=== PATIENT | male | born 1985 | race Caucasian/White ===

== ENCOUNTER 2021-04-09 06:49 | Inpatient (IN) | payer BC ==
[~2021-04-09] VITALS: Ht 180.3 cm; Wt 98.4 kg
[2021-04-09] VITALS (37 sets, daily range): BP systolic 84–138; BP diastolic 50–94
[2021-04-09 13:41] LABS: BE(vivo) -2.1 mmol/L (-2 to +3); HCO3 23.1 mmol/L (22.0-26.0); PCO2 41.2 mmHg (35.0-45.0); PO2 100.9 mmHg (80.0-100.0); pH 7.366 (7.360-7.450); sO2 97.4 % (92.0-98.0)
[2021-04-09 15:56] LABS: CREATININE 0.7 mg/dL (0.7-1.3); POTASSIUM 3.4 mmol/L (3.5-5.1)
[2021-04-09 15:58] LABS: URINE BLOOD 1+ (Negative); URINE CLARITY CLOUDY; URINE COLOR YELLOW; URINE GLUCOSE-RANDOM* NEGATIVE (Negative); URINE KETONES 1+ (Negative); URINE LEUKOCYTES 3+ (Negative); URINE NITRITE POSITIVE (Negative); URINE PROTEIN (DIPSTICK) NEGATIVE (Negative); URINE SPECIFIC GRAVITY 1.025 (1.005-1.035)
[2021-04-09 16:02] LABS: ALBUMIN 4.1 g/dL (3.4-5.0); TOTAL BILIRUBIN 1.2 mg/dL (0.2-1.0); TOTAL PROTEIN 6.7 g/dL (6.4-8.2)
[2021-04-09 16:10] LABS: ICTOTEST (BILI CONFIRMATORY) Negative (Negative); URINE BILIRUBIN NEGATIVE (Negative)
[2021-04-09 16:15] LABS: SQUAMOUS 0-3 Few /LPF (0-3)
[2021-04-09 16:16] LABS: URINE RBC 3-10 Few /HPF (NONE SEEN); URINE WBC >25 Many /HPF (NONE SEEN)
[2021-04-09 16:19] LABS: AMORPHOUS URATES Many /LPF (None Seen)
[2021-04-09 16:20] LABS: URIC ACID CRYSTALS 0-3 Few /LPF (None Seen)
--- NOTE | 2021-04-09 16:42 | NUR ---
PT ARRIVED IN ICU AT APPROX 1300. PT WAS INTUBAED AND SEDATED UPON ARRIVAL. PT WAS MEDICATED WITH PROPOFOL AND FENTYNAL. PRECIADO IN PLACE. PIV X2. PT WAS RESTRAINED BY EMS FOR TRANSPORT. I GOT A NEW ORDER FROM THE PROVIDER AND SWITCHED TO OUR RESTRAINTS. PRECEDEX GTT INIATED. PT AFEBRILE, ADEQUATE UOP, NO BM, NPO. PT AND PARENTS HAVE BEEN THOUROUGHLY UPDATED AND EDUCATED ON PT CONDITION AND POC. PT SLOWLY PROGRESSING TOWARDS POC.
[2021-04-09 19:28] LABS: HEMATOCRIT 38.9 % (42.0-52.0); HEMOGLOBIN 13.3 gm/dL (14.0-18.0); MCH 35.2 pg (26.0-34.0); MCHC 34.1 g/dL (28.0-37.0); MCV 103.3 fL (80.0-100.0); RBC 3.76 mil/uL (4.50-6.00); RDW 12.7 % (10.5-14.5); WBC 5.7 thou/uL (4.0-11.0)
[2021-04-09 19:42] LABS: INR 1.09; PROTIME 11.8 Seconds (10.5-12.1)
[2021-04-09 19:53] LABS: CALCIUM 8.3 mg/dL (8.5-10.1); CREATININE 0.7 mg/dL (0.7-1.3); MAGNESIUM 2.2 mg/dL (1.8-2.4); POTASSIUM 3.4 mmol/L (3.5-5.1)
[2021-04-10] VITALS (46 sets, daily range): BP systolic 88–151; BP diastolic 49–93
[2021-04-10 04:02] LABS: HEMATOCRIT 34.6 % (42.0-52.0); HEMOGLOBIN 12.1 gm/dL (14.0-18.0); MCH 36.6 pg (26.0-34.0); MCHC 34.9 g/dL (28.0-37.0); MCV 104.7 fL (80.0-100.0); RBC 3.3 mil/uL (4.50-6.00); RDW 12.4 % (10.5-14.5); WBC 5.4 thou/uL (4.0-11.0)
[2021-04-10 04:12] LABS: CALCIUM 8.2 mg/dL (8.5-10.1); CREATININE 0.7 mg/dL (0.7-1.3); POTASSIUM 3.8 mmol/L (3.5-5.1)
--- NOTE | 2021-04-10 06:25 | NUR ---
No changes in pt status overnight. Pt kept at RAAS of -3, lower levels of sedation pt will sit up and pull at restraints, lester; moves all extremities and opens eyes but does not follow commands. Urine output 700 cc for this shift. Initially urine clear louise but noted at 0600 that it had become more concentrated, cloudy, with sediment. Lungs remain clear, O2 sat 98-100% on FiO2 25%. Soft wrist restraints remain in place bilaterally.
--- NOTE | 2021-04-10 08:58 | NUR ---
ASSUMED CARE OF PT AT 0700 DR. BALL AT BEDSIDE AT 0830, NEW ORDERS GIVEN FOR LORAZAPAM AND A PICC LINE PLACEMENT. PT IS RESTLESS AND TRYING TO SIT UP AND PULL AT LINES
--- NOTE | 2021-04-10 11:10 | NUR ---
VAT CONSULTED FOR PICC PLACEMENT. PT'S LABS,MEDS,HX,ORDER AND CONSENT VERIFIED. JARRELL AMAYA WAS WIDELY PATENT WITH USG. 5FR TL POWER PICC TRIMMED TO 40CM INSERTED TO 0CM X1 STICK. PT TOLERATED WELL. STAT CXR ORDERED, UNABLE TO CONFIRM WITH 3CG
[2021-04-10 12:06] LABS: ALBUMIN 3.4 g/dL (3.4-5.0); DIRECT BILIRUBIN 0.3 mg/dL (<0.1-0.2); TOTAL BILIRUBIN 0.9 mg/dL (0.2-1.0); TOTAL PROTEIN 6.1 g/dL (6.4-8.2)
--- NOTE | 2021-04-10 12:31 | NUR ---
CXR CONFIRMED PICC AT [facility]. RELEASED FOR IMMEDIATE USE PER PROTOCOL
[2021-04-11] VITALS (33 sets, daily range): BP systolic 96–139; BP diastolic 60–95
--- NOTE | 2021-04-11 | NUR ---
PTS FATHER CALLED AND SAID HE FOUND 2 MONTHS QUANITY OF PRILOSEC IN HIS APT PT WAS S/C TO HAVE AN MRI THIS WED DUE TO ABD PAIN POSSIBLE PANCRETITIS HE STATES PT WAS TO GO TO [facility] IN [facility] BUT WAS THEN TX HERE DUE TO NO ICU BEDS AT [facility] IN [facility].
[2021-04-11 05:28] LABS: ALBUMIN 3.2 g/dL (3.4-5.0); CALCIUM 8.1 mg/dL (8.5-10.1); CREATININE 0.7 mg/dL (0.7-1.3); POTASSIUM 3.5 mmol/L (3.5-5.1); TOTAL BILIRUBIN 0.6 mg/dL (0.2-1.0); TOTAL PROTEIN 6.1 g/dL (6.4-8.2)
[2021-04-11 05:51] LABS: HEMOGLOBIN 12.7 gm/dL (14.0-18.0); MCH 35.8 pg (26.0-34.0); MCHC 34.5 g/dL (28.0-37.0); MCV 103.7 fL (80.0-100.0); RBC 3.56 mil/uL (4.50-6.00); RDW 12.4 % (10.5-14.5); WBC 5.5 thou/uL (4.0-11.0)
--- NOTE | 2021-04-11 06:00 | NUR ---
REMAINS INTUBATED AND SEDATED WITH PROPOFOL 50 MCG AND ATIVAN AT 6 MG VERSED GTT TITRATED OFF EARLIER. PT BECOMES VERY AGITATED AND RESTLESS IF SEDATION IS LIGHTENED. 1000 CC UO THIS SHIFT. PROGRESSING TOWARD GOALS
--- NOTE | 2021-04-11 07:26 | NUR ---
ORDERS FOR EVAL AND TREAT. Pt IS INTUBATED AND SEDATED. WILL PLACE ON HOLD AND AWAIT NEW ORDERS WHEN Pt CAN PARTICIPATE
--- NOTE | 2021-04-11 11:37 | NUR ---
Spoke with pt dad on phone - dad stated pt was scheduled for abdominal US and brain MRI this week. He has since cancelled those appointments but wanted to let the care team here know. RN informed dad of pt general condition and encouraged to call back with any questions or concerns.
--- NOTE | 2021-04-11 16:05 | NUR ---
35-year-old male patient who presented by air ambulance from [facility] in [facility]. The patient presented there with acute alcohol withdrawal symptoms. Patient remains in ICU on a ventilator at this time. Father Trace is listed as next of kin at [phone]. Spoke with father Trace who added the patients mother Pat [phone] to the call. Both discussed their concerns over his drinking for many years. That and a long standing history of depression and anxiety. 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 The patient lives alone in his own home. The family had reached out to [facility] last week looking for a bed for the patient for his ongoing addition along with depression and anxiety. Discussed the role of CM and that CM has been in touch with [facility] at [phone] via Ev Reynolds. Ev has agreed to come see patient once more medically stable. Answered parents questions and gave number to call for an CM concerns. Informed that CM will be in touch once patient becomes more medically stable and plans for discharge begin. CM will continue to follow for discharge needs.
--- NOTE | 2021-04-11 22:00 | NUR ---
SPOKE WITH PTS FATHER. GIVEN A COND REPORT. HE STATES HIS SON IS A WONDERFUL KIND PERSON. HE JUST HAS THIS ALCOHOL ADDICTION. 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 HE WAS CONCERNED HIS PCP WANTED AN MRI AND MRA OF THE BRAIN AND US OF ABOUMEN THIS WEEK. HE IS JUST ANXIOUS TO GET HIS SON INTO A GOOD REHAb CENTER.
[2021-04-12] VITALS (24 sets, daily range): BP systolic 98–141; BP diastolic 61–99
[2021-04-12 05:04] LABS: BE(vivo) -2.2 mmol/L (-2 to +3); HCO3 21.9 mmol/L (22.0-26.0); PCO2 35.3 mmHg (35.0-45.0); PO2 121.5 mmHg (80.0-100.0); sO2 98.4 % (92.0-98.0)
[2021-04-12 05:44] LABS: BASOPHILS 0.5 % (0.0-2.0); EOSINOPHILS 5.4 % (0.0-3.0); HEMATOCRIT 35.8 % (42.0-52.0); HEMOGLOBIN 12.4 gm/dL (14.0-18.0); LYMPHOCYTES 21.8 % (24.0-44.0); MCH 35.6 pg (26.0-34.0); MCHC 34.6 g/dL (28.0-37.0); MCV 102.9 fL (80.0-100.0); MONOCYTES 12.7 % (1.0-8.0); PLATELET COUNT 129 thou/uL (150-400); POLYS 59.6 % (36.0-66.0); RBC 3.48 mil/uL (4.50-6.00); RDW 12.3 % (10.5-14.5); WBC 5.1 thou/uL (4.0-11.0)
--- NOTE | 2021-04-12 06:00 | NUR ---
REMAINS INTUBATED AND SEDATED WITH PRECEDEX 0.8 AND PROPOFOL 40 MCG RESTRAINED. PT IS VERY STRONG AND WILL ATTEMPT TO PULL AT ET TUBE. 800 CC UO THIS SHIFT. SINUS RHYTHM. PROGRESSING TOWARD GOALS. WILL CONT TO MONITOR.
[2021-04-12 06:16] LABS: ALBUMIN 2.9 g/dL (3.4-5.0); CALCIUM 8.2 mg/dL (8.5-10.1); CREATININE 0.6 mg/dL (0.7-1.3); POTASSIUM 3.3 mmol/L (3.5-5.1); TOTAL BILIRUBIN 0.7 mg/dL (0.2-1.0)
--- NOTE | 2021-04-12 09:00 | NUR ---
REPORTED TO DR. SCANLON IN ROUNDS THAT PT PCP AT THE OTHER HOSPITAL WAS ASKING FOR A CT ABD AND MRI MRA OF THE BRAIN. NO NEW ORDERS.
--- NOTE | 2021-04-12 10:57 | NUR ---
PT SAT UP IN BED AND REACHED FOR ETT DESPITE SEDATION. HOWEVER FOLLOWING ALL COMMANDS AT THIS TIME AND CALM. DIPRIVAN PLACED ON HOLD. CPAP TRIAL STARTED.
--- NOTE | 2021-04-12 11:39 | NUR ---
Reviewed case in 04-12-21 LOS and plan for continued ICU care. No changes to ICU level of care and remains intubated. CM will continue to follow.
--- NOTE | 2021-04-12 19:38 | NUR ---
PT REMAINS SEDATED ON VENT, BRIEF CPAP TRIAL TODAY. TOLORATING TUBE FEEDING.
--- NOTE | 2021-04-12 20:24 | NUR ---
PT'S FATHER CALLED; UPDATED UPON HIS REQUESTED.
[2021-04-13] VITALS (27 sets, daily range): BP systolic 79–144; BP diastolic 48–89
[2021-04-13 04:33] LABS: CALCIUM 8.8 mg/dL (8.5-10.1); CREATININE 0.5 mg/dL (0.7-1.3); MAGNESIUM 2.1 mg/dL (1.8-2.4); POTASSIUM 3.8 mmol/L (3.5-5.1)
[2021-04-13 04:35] LABS: HEMATOCRIT 36.8 % (42.0-52.0); HEMOGLOBIN 12.8 gm/dL (14.0-18.0); MCH 35.8 pg (26.0-34.0); MCHC 34.7 g/dL (28.0-37.0); RBC 3.57 mil/uL (4.50-6.00); RDW 12.7 % (10.5-14.5); WBC 5.2 thou/uL (4.0-11.0)
--- NOTE | 2021-04-13 06:20 | NUR ---
No event in this shift. Pt remains on vent and heavily sedated. Not tolerating to come down on sedative due to on going ETOH withdrawal. High risk of self extubation noted. Gave ativan IV prn as chart per EMAR. Slowl progressing toward goals.
--- NOTE | 2021-04-13 20:43 | NUR ---
END OF SHIFT NOTE. PT NOT PROGRESSING TOWARDS GOALS BUT GOALS REMAIN THE SAME. VERY RESTLESS EVEN ON SEDATION, NOT FOLLOWING COMMANDS TODAY. LASIX X 1 WITH GOOD DIURESIS. TOLORATING TUBE FEEDING.
[2021-04-14] VITALS (28 sets, daily range): BP systolic 81–138; BP diastolic 40–90
[2021-04-14 04:44] LABS: BE(vivo) 1.8 mmol/L (-2 to +3); HCO3 27.1 mmol/L (22.0-26.0); PCO2 44.9 mmHg (35.0-45.0); PO2 89.1 mmHg (80.0-100.0); pH 7.398 (7.360-7.450); sO2 96.7 % (92.0-98.0)
[2021-04-14 05:17] LABS: ALBUMIN 3.1 g/dL (3.4-5.0); CALCIUM 8.9 mg/dL (8.5-10.1); CREATININE 0.8 mg/dL (0.7-1.3); POTASSIUM 3.8 mmol/L (3.5-5.1); TOTAL BILIRUBIN 0.5 mg/dL (0.2-1.0); TOTAL PROTEIN 6.6 g/dL (6.4-8.2)
[2021-04-14 05:25] LABS: ABSOLUTE NEUTROPHILS 3.2 thou/uL (1.4-8.2); BASOPHILS 0.5 % (0.0-2.0); HEMATOCRIT 37.2 % (42.0-52.0); HEMOGLOBIN 13.1 gm/dL (14.0-18.0); LYMPHOCYTES 21.7 % (24.0-44.0); MCH 35.9 pg (26.0-34.0); MCHC 35.1 g/dL (28.0-37.0); MCV 102.1 fL (80.0-100.0); MONOCYTES 18.4 % (1.0-8.0); PLATELET COUNT 204 thou/uL (150-400); POLYS 53.4 % (36.0-66.0); RBC 3.64 mil/uL (4.50-6.00); RDW 12.4 % (10.5-14.5); WBC 5.9 thou/uL (4.0-11.0)
--- NOTE | 2021-04-14 06:19 | NUR ---
Pt is continue to be on vent. No event tonight. Still on high dose of propofol and precedex gtt for sedation. He is able to follow some commands when decreased some propofol gtt. He tried to get out off bed when he awakes. High risk of self extubation noted. Continue to be on restraint w/o any complication. He is well tolerated TF. Murdock is patent with great urine output. VSS. Afebrile in this shift. He is slowly progressing toward goals.
--- NOTE | 2021-04-14 09:45 | NUR ---
pt's father called in am. updated on plan of care, medications for alcohol withdraw, wrist restraints for safety. questions answered to satisfaction.
--- NOTE | 2021-04-14 11:35 | NUR ---
self extubation. rn just observered pt sleeping with kenna wrist restraints intact. self extubated, breathing on own with resp even and unlabored. pt able to cough, suctioned thick clear and bloody tinged secretions. sa02 eventually down to 85%, bagged with 100% 02, then placed on 100% nonrebreather. Marlen RT immediately notified, then Dr. Jiménez notified. placed on 3L/nc by RT.
[2021-04-14 12:07] LABS: BE(vivo) 1.9 mmol/L (-2 to +3); HCO3 27.2 mmol/L (22.0-26.0); PCO2 44.9 mmHg (35.0-45.0); PO2 85.8 mmHg (80.0-100.0); sO2 96.5 % (92.0-98.0)
--- NOTE | 2021-04-14 13:25 | NUR ---
pulling at restraints, trying to get out of bed, sitting up in bed, wobbly and leaning over bedrail looking down toward restraint securing site to release restraint. assisted back into bed again. scooted way down in bed with one leg hanging out of bed. media monitor patches replaced, pt removed them within minutes. repositioned for comfort with 2 assist with kenna wrist restraints remaining secure for pt safety. follows commands all extremities, impulsive.
[2021-04-15] VITALS (25 sets, daily range): BP systolic 86–124; BP diastolic 49–78
--- NOTE | 2021-04-15 16:00 | NUR ---
DR. RM HERE. STATES TO JUST LEAVE PRECEDEX ON FOR NOW.
--- NOTE | 2021-04-15 18:16 | NUR ---
End of shift note. Pt remains somewhat sedate on Precedex. Attempted to get OOB x 1 but bed alarm was on. Pt confused to place and sometimes situation. He knows it is March but not the date. Hallucinating at times.
[2021-04-16] VITALS (30 sets, daily range): BP systolic 77–137; BP diastolic 45–90
[2021-04-16 09:17] LABS: ABSOLUTE NEUTROPHILS 3.3 thou/uL (1.4-8.2); BASOPHILS 0.3 % (0.0-2.0); EOSINOPHILS 4.8 % (0.0-3.0); HEMATOCRIT 39.4 % (42.0-52.0); HEMOGLOBIN 13.7 gm/dL (14.0-18.0); LYMPHOCYTES 21.9 % (24.0-44.0); MCH 35.3 pg (26.0-34.0); MCHC 34.9 g/dL (28.0-37.0); MCV 101.1 fL (80.0-100.0); MONOCYTES 15.3 % (1.0-8.0); PLATELET COUNT 276 thou/uL (150-400); POLYS 57.7 % (36.0-66.0); RDW 12.1 % (10.5-14.5); WBC 5.7 thou/uL (4.0-11.0)
[2021-04-16 09:46] LABS: ALBUMIN 3.4 g/dL (3.4-5.0); CALCIUM 9.4 mg/dL (8.5-10.1); CREATININE 0.8 mg/dL (0.7-1.3); MAGNESIUM 2.2 mg/dL (1.8-2.4); POTASSIUM 4.2 mmol/L (3.5-5.1); TOTAL BILIRUBIN 0.7 mg/dL (0.2-1.0); TOTAL PROTEIN 7.4 g/dL (6.4-8.2)
--- NOTE | 2021-04-16 11:54 | NUR ---
oriented to person, place, incorrect date. ciwa-3. precedex continuing. requesting to brush teeth and bathing self now.
--- NOTE | 2021-04-16 15:02 | NUR ---
alert, oriented. Dr. Acosta present. pt feels slightly agitated. librium ordered, administered. lester dc'd, well tolerated. up to toilet.
[2021-04-16 19:30] LABS: FOLIC ACID 9.9 ng/mL (8.6-58.9)
--- NOTE | 2021-04-16 22:58 | NUR ---
PT ALERT AND ORIENTED X4. VSS AFEBRILE. SATS 99% ON RA PRESENTLY. LUNGS CLEAR SLIGHTLY DIMINISHED AT BASES. FINGERTIPS AND EXTREMITIES REMAIN SLIGHTLY MOTTLED, PT IS ABLE TO TURN SELF IN BED. DENIED PAIN. NPO AFTER MN FOR ABDOMINAL US. CIWA 0 . PT IS CALM AND QUIET. NO S/S SZ ACTIVITY NOTED. BED DOWN CALL LIGHT IN REACH. BED ALARM IS ON.
[2021-04-17] VITALS (24 sets, daily range): BP systolic 103–141; BP diastolic 60–93
--- NOTE | 2021-04-17 04:11 | NUR ---
PT PROGRESSING TOWARDS D/C GOALS. VSS AFEBRILE. SATS WNL. SR -ST ON MONITOR. PT HAS BEEN NPO SINCE MS FOR ABDOMINAL US. ENCOURAGED PT TO TRY TO URINATE. HE STATED HE REALLY HASNT HAD ANYTHING TO EAT OR DRINK TONIGHT AND DOES NOT FEEL THE URGE TO VOID PRESENTLY.
[2021-04-17 05:02] LABS: ALBUMIN 3.5 g/dL (3.4-5.0); DIRECT BILIRUBIN 0.2 mg/dL (<0.1-0.2); TOTAL BILIRUBIN 0.6 mg/dL (0.2-1.0); TOTAL PROTEIN 7.3 g/dL (6.4-8.2)
--- NOTE | 2021-04-17 07:30 | NUR ---
PT DID VOID 400 THIS AM CLEAR YELLOW URINE. NO S/S DISTRESS. NO C/O PAIN.
--- NOTE | 2021-04-17 09:50 | NUR ---
WHEN RN ENTERED THE ROOM, PT WAS READING A BOOK, MUCH DIFFERENT AFFECT THAN DAYS PRIOR WHEN RN HAD ORIGINALLY SEEN THE PT. PT IS AOX4 CALM/COLLECTED. RN SPOKE BREIFLY ABOUT POST HOSPITALIZATIO SELF SUFFICIENCY CARE AND TO ADDRESS THE REASONS FOR ALCOHOLISM, PER PT, STATED THAT HE WAS DEPRESSED, PREDISPOSED FOR ALCOHOLISM R/T FAMILY AND WORKING FROM HOME EXACERBATED THIS. PT WAS SEEN EATING PUREED DIET FOOD, TOLERATED VERY WELL. SEROQUEL WAS NOT GIVEN THIS AM, PER PT, DID NOT TAKE SEROQUEL PRIOR TO HOSPITALIZATION. PT STATED THAT HE HAD SPOKEN WITH A STAFF REGARDING GETTING ON A MONTH LONG TREATMENT PROGRAM TO HELP WITH CURRENT CONDITION AND TO QUIT ALCOHOL. 80% OF MORNING MEAL EATEN. TRANSFER ORDERS IN, RN TO REPORT SOON
--- NOTE | 2021-04-17 14:39 | EKG ---
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 : 1985 Requested By: Delia Acosta Order Number: [id number] MD: Shawn Flowers Measurements Intervals [place] Rate: 93 P: 48 NM: 157 QRS: 61 QRSD: 96 T: -20 QT: 374 QTc: 466 Interpretive Statements Sinus rhythm Borderline T abnormalities, diffuse leads Baseline wander in lead(s) I,V1 No previous ECG available for comparison Electronically Signed On 04-17-2021 14:39:02 CDT by Shawn Flowers [email or web address] <ELECTRONICALLY SIGNED> By: Shawn Flowers MD, [facility] 04/17/21 1439 27 27 Shawn Flowers MD, [facility] /EPI
--- NOTE | 2021-04-17 18:33 | NUR ---
PATIENT TRANSFER FROM ICU AT 1030. A/0 X4. CIW X0. WALKED IN HALLWAY GAIT STEADY. WILL NPO AFTER MIDNIGHT. SLOWLY TOWARDS POC GOALS.
--- NOTE | 2021-04-18 04:23 | NUR ---
Patient making slow progress towards outcpme goals. Oxygenation optimal on room air. Discussed with Ester conte NP low grade temperature, orders recived for Tylenol. Now afebrile. NPO after MN for possible gall bladder removal. CIWA currently 0, high fall risks, fall precautions in place. BP and rhythm stable.
[2021-04-18 05:25] VITALS: BP 112/75
[2021-04-18 07:54] VITALS: BP 121/80
--- NOTE | 2021-04-18 09:31 | NUR ---
Now that patient is out of ICU reached out to Ev Reynolds at [facility] at [phone] and gave room number of patient as well as the office number of SW. Ev will reach out to JAYSON and come see the patient on-site for a referral for possible discharge needs. Notified SW of above.
--- NOTE | 2021-04-18 09:55 | NUR ---
Spoke with both Father Papi and Mother Beatriz of patient at [phone] and discussed plan of care medically. Parents have faxed to [facility] papers for signature. Plan Noel diamond at noon. Also informed of [facility] consult. Father mentioned the patient has not been seen by psychiatry and notified psychiatrist of current status including room number and planned surgery for today along with need for consult as ordered previously. Will also ask that PT and OT resume and see patient post op and will await psych consult along with [facility] consult.
[2021-04-18 15:07] VITALS: BP 110/68
--- NOTE | 2021-04-18 15:13 | NUR ---
JAYSON reviewed chart and spoke with nursing and attending physician. Pt was transferred to from ICU. Pt is currently off the unit having surgery-lap eliz. PT/OT to evaluate pt following surgery. Psych consulted to evaluate pt. [facility] has been contacted to assist with treatment options. JAYSON received call from Ev with [employer] requesting update and info regarding pt's history. Info provided. Ev to follow up with pt to discuss treatment options. JAYSON received several calls from pt's father, Trace, regarding discharge plan and assistance with FMLA ppwk. FMLA ppwk received and provided to hospitalist for completion. JAYSON explained need for medical clearance for discharge and assessment by [facility] for treatment plan. JAYSON is following to assist as needed with discharge planning.
[2021-04-18 17:42] VITALS: BP 110/68; BP 120/78
[2021-04-18 17:43] VITALS: BP 123/85; BP 126/84
[2021-04-18 19:25] VITALS: BP 117/72
[2021-04-19] VITALS (7 sets, daily range): BP systolic 108–127; BP diastolic 72–77
--- NOTE | 2021-04-19 05:16 | NUR ---
PT MAKING PROGRESS TOWARDS GOALS. INSTRUCTED TO SPLINT HIS ABDOMEN WITH ANY COUGHING, LAUGHING AND EVEN WALKING TO HELP DECREASE PAIN. RATING PAIN 1-2/10 OVERNIGHT.
[2021-04-19] MEDS ORDERED: ACETAMINOPHEN325 M1 PO (10:22)
--- NOTE | 2021-04-19 15:18 | NUR ---
JAYSON reviewed chart and spoke with nursing and attending physician. Pt is POD#1 lap eliz. Pt started on a diet and is medically stable for discharge. JAYSON met with pt at bedside. Introduced role of JAYSON. Pt is alert/orientated x 4. JAYSON discussed recommendation for inpatient ETOH treatment, which has been discussed with his parents. Pt is aware and in agreement with plan. Pt has not yet spoken with [facility]. SW informed pt that he will be going out of state for treatment. Pt verbalized understanding. FMLA ppwk completed by attending physician. JAYSON spoke with Ev with [facility], who states that pt has been accepted to their facilities in [place], [place] or [place], [place]. JAYSON faxed additional clinical info and discharge ppwk to [facility]. Received confirmation. Air flight and escort services are not covered by pt's insurance. JAYSON spoke with pt's father, Trace, via phone to provide update and discuss transportation arrangements. Pt's family would prefer the [place] location. Pt's father states they would like for pt to be transported with escort service by air flight. Pt's parents will be bringing personal belongings to [facility] this afternoon. JAYSON updated Ev at [facility], who states she will work on making flight arrangements for tomorrow morning. JAYSON met with pt at bedside to provide update. Pt is agreeable with plan. FMLA ppwk left in pt's room for pt's father to pickle cutter. JAYSON placed call to pt's father's cell phone. No voice mailbox available. JAYSON spoke with pt's mother via phone to provide update. Pt's father is en route to [facility] and will be her later this afternoon. Awaiting call from Ev with confirmation of travel plans. JAYSON updated nursing and attending physician. JAYSON is following to assist as needed with discharge planning.
[2021-04-20 03:39] VITALS: BP 102/60
--- NOTE | 2021-04-20 03:50 | NUR ---
pt asked question about self care of incision sites and if their are other restrictions since his lap-eliz. educated pt about diet restrictions and cleaning incision sites. he is aware of plan for discharge and he seems to be unenthusiastic about the etoh rehab, learning curve. encouraged patient to think about the fact that rehab ( like most things) you only get out what is put in. patient acknowledged this reality
[2021-04-20 07:16] VITALS: BP 115/74
--- NOTE | 2021-04-20 11:35 | NUR ---
JAYSON reviewed chart and spoke with nursing and attending physician. Pt is medically stable for discharge today. JAYSON received call from Ev with [facility], who states that she met with pt this morning. Pt will be going to their treatment facility in [place], [place] ([facility]: [address] [place] [id number]). Per Ev, this facility will better meet pt's needs. Ev states that transportation will be arranged for tomorrow (Air flight and escort services). Ev is unable to get all arranged for today. JAYSON met with pt at bedside to provide update. Pt is aware and in agreement with discharge plan. Pt's personal belongings at bedside. JAYSON updated pt's nurse and attending physician. Awaiting confirmation of transportation arrangements. JAYSON is following to assist as needed with discharge planning.
[2021-04-20 16:04] VITALS: BP 107/68
[2021-04-20 19:11] VITALS: BP 124/77
[2021-04-20 20:28] VITALS: BP 111/72
--- NOTE | 2021-04-20 22:07 | NUR ---
PT RESTING IN BED. ABD DISTENDED BS DECREASED, PT PASSING GAS. STERI STRIPS INTACT. PT DECLINED HS SNACK. PT VERBALIZED PLAN FOR DC IN AM 0930. PT TRANSFERRING TO [facility] PER [employer] RE[facility]. PT VERBALIZED UNDERSTANDING. PT HAD ALL OF HIS ITEMS TRANSFERRED WITH HIM. REPORT CALLED. NURSE AWARE OF PLANNED CD 0930 WITH ESCORT TO AIRPORT AND TO [facility].
--- NOTE | 2021-04-21 03:35 | NUR ---
PT TRANSFERRED TO UNIT AT APPROXIMATELY 2200. PT I A/O X4 AND IS UP AD FIDEL. VSS AFEBRILE. LAP SITES C/D/I. DENIES C/O PAIN OR DISCOMFORT. CALL LIGHT IS WITHIN REACH. WILL CONTINUE TO MONITOR.
[2021-04-21 07:42] VITALS: BP 112/75
--- NOTE | 2021-04-21 07:43 | NUR ---
ASSUMED CARE OF PT AT 0700 THIS MORNING. PT IS A/OX4 AND HAS NO COMPLAINTS. PT IS TO BE DISCHARGED THIS MORNING AT 0930 WITH ESCORT TO GO TO THE AIRPORT AND TO A REHAB FACILITY. SKIN IS INTACT WITH X4 LAP SITES WITH DERMABOND AND TAPE. ASSESSMENTS DOCUMENTED IN CHART AND OTHERWISE UNREMARKABLE. JARRELL [id number] PICC IS IN PLACE. CALL LIGHT AND OTHER NEEDS ARE WITHIN REACH. MEDS AND TX GIVEN NEEDED AND SCHEDULED. PT SIGNED DISCHARGE PAPERWORK AND INSTRUCTONS ARE LEFT WITH PT. WILL CONTINUE TO OBSERVE UNTIL LEAVING UNIT.
--- NOTE | 2021-04-21 10:08 | PATH ---
[facility] [address] [place] [address] PATHOLOGY RPT PROCEDURE Name: EWELINA FONSECA Room #: 433-I ADM IN M.R.#: [id number] Admission: 04/09/21 Date of : 85 Discharge: Report #: [id number] Path Case #: [id number] LCA Accession Number: [id number] . 01 Material submitted: . gallbladder - GALLBLADDER . 01 Clinical history: . LAPAROSCOPIC CHOELCYSTECTOMY CHOLELITHIASIS ETOH WITHDRAWAL . 02 Diagnosis: Gallbladder, cholecystectomy: - Mild chronic cholecystitis. - Cholelithiasis. (IUV:sherif; 04/20/2021) QMS 04/20/2021 1610 Local . 02 Electronically signed: . Dominga Oliveira MD, Pathologist NPI- [id number] . 01 Gross description: . Fixative: Formalin Labeled: Gallbladder Specimen received: Previously punctured gallbladder Dimensions: 8.1 x 2.7 x 1.8 cm Serosa: Cecil-Bishop-mccormick Lymph node: None identified Mucosa: Velvety, bile-stained Average wall thickness: 0.1 cm Calculi: Identified displaying a yellow-carias and multifaceted appearance Abnormalities: None identified . Product Accountant body, fundus, and the cystic duct margin in cassette A1. (CAA; 04/19/2021) QA/QA 04/20/2021 1609 Local . 02 Pathologist provided ICD-10: K80.10 . 02 CPT . 764061 Specimen Comment: A courtesy copy of this report has been sent to [phone], [phone] Specimen Comment: [phone] [address] PATHOLOGY RPT PROCEDURE Name: JORGECarterEWELINA Room #: 433-I [facility] IN [facility]#: [id number] Admission: 04/09/21 Date of : 85 Discharge: Report #: [id number] Path Case #: [id number] Specimen Comment: Report sent to / DR BALL Performed at: [address], [place] [id number] MD Gianni Hammonds MD Phone: [phone] Performed at: [address] [id number] MD Dominga Oliveira MD Phone: [phone]
--- NOTE | 2021-04-21 11:53 | NUR ---
ON-GOING ASSESSMENT: PT TRANSFERRED UP TO 4S FROM 3W AND DISCHARGE PLAN ALREADY CONFIRMED. PT IS TO LEAVE TODAY AROUND 0930 AND IS WORKING WITH MERYL FROM [facility] TO BOARD A FLIGHT TO REHAB FACILITY OUT OF STATE. BEDSIDE RN AWARE. MERYL FROM [employer] [facility] WAS UPDATED ON THE NEW ROOM NUMBER FOR PT. CASE CLOSED.
--- NOTE | 2021-04-23 17:04 | O ---
[facility] [place] [address] [place] [address] OPERATIVE REPORT Name: EWELINA FONSECA Room #: 433-I [facility] IN ..#: [id number] Admission: 04/09/21 Attend Phys: Yonas Strickland MD Discharge: 04/21/21 Date of : 85 Report #: [id number] THIS REPORT FOR: cc: [facility] - Clinic physician unknown [facility] - Clinic physician unknown Jesse Rodrigez MD ~ DATE OF SERVICE: 04/18/2021 PREOPERATIVE DIAGNOSIS: Symptomatic cholelithiasis. POSTOPERATIVE DIAGNOSIS: Symptomatic cholelithiasis. OPERATION: Laparoscopic cholecystectomy. SURGEON: Jesse Rodrigez MD ANESTHESIA: General. ESTIMATED BLOOD LOSS: Minimal. SPECIMENS: Gallbladder. DESCRIPTION OF PROCEDURE: After informed consent was obtained, the patient was brought to the operating room and placed supine. SCDs were placed and working, preoperative antibiotics were administered, general anesthesia was induced. The abdomen was prepped and draped in the usual sterile fashion. A 10 mm incision was made above the umbilicus. Fascia was incised and a trocar was placed. Pneumoperitoneum was established. Three right upper quadrant 5 mm ports were placed. Gallbladder was grasped at the fundus and retracted cephalad. Infundibulum was grasped and retracted laterally. I dissected out the cystic duct and cystic artery. The cystic duct and artery were clipped and ligated leaving 2 clips on the remaining duct and one on the remaining artery. Gallbladder was then taken off the liver bed with electrocautery. It was placed into an Endopouch and removed. The fascia was then closed with a [id number] 0 Vicryl. Skin was closed with 4-0 Monocryl. Incisions were dressed with Steri-Strips. COMPLICATIONS: None. DISPOSITION: The patient was taken to recovery in satisfactory condition. <ELECTRONICALLY SIGNED> By: Jesse Rodrigez MD 04/23/21 1704 1259 [id number] Jesse Rodrigez MD /nt
== END 2021-04-21 09:15 | disposition home or self-care (01) | DRG 417 ==
LOC: ICU 06:49 → 3W 14:51 → ICU 14:51 → 3W 04-17 11:12 → 4S 04-20 22:20
PROVIDERS: Internal Medicine; Nurse Practitioner Family; Pediatrics; ADMIT Hospitalist; ATTEND Hospitalist
PROC: 0BH17EZ Insertion of Endotracheal Airway into Trachea, Via Natural or Artificial Opening (ICD-10-PCS; principal; 2021-04-09)
PROC: 5A1955Z Respiratory Ventilation, Greater than 96 Consecutive Hours (ICD-10-PCS; principal; 2021-04-09)
PROC: 02HV33Z Insertion of Infusion Device into Superior Vena Cava, Percutaneous Approach (ICD-10-PCS; 2021-04-10)
PROC: 0FT44ZZ Resection of Gallbladder, Percutaneous Endoscopic Approach (ICD-10-PCS; 2021-04-18)
DX: K80.20 Calculus of gallbladder without cholecystitis without obstruction (principal); J96.01 Acute respiratory failure with hypoxia; F10.231 Alcohol dependence with withdrawal delirium; F32.9 Major depressive disorder, single episode, unspecified; D69.6 Thrombocytopenia, unspecified; E16.2 Hypoglycemia, unspecified; D64.9 Anemia, unspecified; R74.01 Elevation of levels of liver transaminase levels; Z71.6 Tobacco abuse counseling
CPT/HCPCS: 10078; 10100; 10102; 10879; 27000; 50010; 50101; 50411; 50555; 51489; 52265; 52266; 53307; 53312; 53314; 55245; 56462; 56525; 56526; 58574; 62110; 62900; 70005